=== PATIENT | female | born 1950 | race Caucasian/White ===

== ENCOUNTER 2022-01-22 18:22 | Inpatient (IN) ==
[2022-01-22 18:59] LABS: Basophils # 0.1 10*3/uL (0.0-0.2); Basophils % 0.6 % (0.0-0.8); Eosinophils # 0.4 10*3/uL (0.0-0.87); Eosinophils % 4.1 % (0.00-10.9); Hematocrit 36.9 VOL% (35.7-47.0); Hemoglobin 12.1 GM/DL (12.0-16.0); Immature Granulocytes % 0.4 %; Immature Granulocytes Absolute 0.04 #; Lymphocytes # 2.2 10*3/uL (1.4-4.0); Mean Corpuscular HGB Conc 32.8 GM/DL (32-36); Mean Corpuscular Volume 90.9 FL (87-102); Mean Platelet Volume 10.6 FL (9.6-12.0); Monocytes # 0.6 10*3/uL (0.11-0.8); Monocytes % 6.7 % (1.7-12.7); Neutrophils % 65.2 % (38.7-73.9); Platelet Count 224 T/CUMM (130-400); Red Blood Count 4.06 MC/CUMM (3.8-5.5); Red Cell Distribution Width 13.3 % (9.3-17.3); White Blood Count 9.4 T/CUMM (4-12)
[2022-01-22 19:06] LABS: Arterial Base Excess iSTAT 1 MMOL/L (-2.5-2.5); Arterial Bicarbonate iSTAT 24.8 MMOL/L (20-26); Arterial O2 Saturation iSTAT 95 % (95-100); Arterial PCO2 iSTAT 36 MM HG (35-48); Arterial PO2 iSTAT 74 MM HG (80-95); Arterial Total CO2 iSTAT 26 MMO/L (23-27); Arterial pH iSTAT 7.446 (7.35-7.45)
[2022-01-22 19:09] LABS: INR 0.9; PT Patient Result 10.5 SECS (10.1-12.1)
[2022-01-22 19:22] LABS: Albumin 3.9 G/DL (3.4-5.0); Bilirubin,Total 0.5 MG/DL (0.20-1.00); Calcium 9.9 MG/DL (8.5-10.1); Osmolality,Calculated 287.3 MOS/KG (273-304); Potassium 3.7 MMOL/L (3.5-5.1)
[2022-01-22] MEDS ORDERED: ENOXAPARIN 30 MG/0.3 ML SYRINGE SUBCUT STA (20:30)
[2022-01-22] MEDS ORDERED: ENOXAPARIN 100 MG/ML SYRINGE SUBCUT ONE (20:31)
[2022-01-22] MEDS ORDERED: GLUCAGON 1 MG VIAL IM PRN (21:58)
[2022-01-22] MEDS ORDERED: SIMETHICONE CHEW 125 MG TABLET PO PRN (22:03)
[2022-01-22] MEDS ORDERED: ONDANSETRON 4 MG/2 ML VIAL IV PRN (22:03)
[2022-01-22] MEDS ORDERED: ALBUTEROL 2.5 MG/3 ML NEB RESP TX PRN (22:03)
[2022-01-22] MEDS ORDERED: ACETAMINOPHEN 325 MG TABLET PO PRN (22:03)
[2022-01-22] MEDS ORDERED: hydrALAZINE 20 MG/1 ML VIAL IV PRN (22:03)
[2022-01-22] MEDS ORDERED: MAGNESIUM SULF RIDER 2 GM/50 ML PREMIX IV STA (22:09)
[2022-01-22] MEDS ORDERED: DEXTROSE 10% 250 ML BAG IV PRN (22:18)
[2022-01-22] MEDS: ASPIRIN EC 81 MG TABLET PO SCH (23:30)
[2022-01-22] MEDS: GABAPENTIN 100 MG CAPSULE PO SCH (23:30)
[2022-01-22] MEDS: LACTATED RINGERS 1,000 ML IV SCH (23:30)
[2022-01-23] MEDS: LEVOTHYROXINE 75 MCG TABLET PO SCH (05:11)
[2022-01-23 05:20] LABS: Basophils # 0.1 10*3/uL (0.0-0.2); Basophils % 0.7 % (0.0-0.8); Eosinophils # 0.3 10*3/uL (0.0-0.87); Eosinophils % 4.2 % (0.00-10.9); Hematocrit 31.6 VOL% (35.7-47.0); Hemoglobin 10.5 GM/DL (12.0-16.0); Immature Granulocytes % 0.4 %; Immature Granulocytes Absolute 0.03 #; Lymphocytes # 1.9 10*3/uL (1.4-4.0); Lymphocytes % 27.3 % (21.3-54.2); Mean Corpuscular HGB Conc 33.2 GM/DL (32-36); Mean Corpuscular Volume 90.3 FL (87-102); Mean Platelet Volume 10.5 FL (9.6-12.0); Monocytes # 0.5 10*3/uL (0.11-0.8); Monocytes % 6.8 % (1.7-12.7); Neutrophils % 60.6 % (38.7-73.9); Platelet Count 178 T/CUMM (130-400); Red Cell Distribution Width 13.4 % (9.3-17.3); White Blood Count 6.9 T/CUMM (4-12)
[2022-01-23 05:30] LABS: INR 0.9; PT Patient Result 10.3 SECS (10.1-12.1)
[2022-01-23 05:51] LABS: Calcium 9.7 MG/DL (8.5-10.1); Osmolality,Calculated 280.5 MOS/KG (273-304); Potassium 3.6 MMOL/L (3.5-5.1); Risk Ratio 3.98; Thyroid Stimulating Hormone 3.1 uIU/ml (0.358-3.74); VLDL Cholesterol 30.6 MG/DL
[2022-01-23 05:57] LABS: Platelet Estimate Normal
[2022-01-23] MEDS: INSULIN REGULAR 100 UNIT/ML SUBCUT SCH ×4 (07:10→20:53)
[2022-01-23] MEDS ORDERED: ENOXAPARIN 120 MG/0.8 ML SYRINGE SUBCUT SCH (08:00)
[2022-01-23] MEDS ORDERED: VALSARTAN 320 MG PO SCH (09:00)
[2022-01-23] MEDS ORDERED: CHLORTHALIDONE 15 MG PO SCH (09:00)
[2022-01-23] MEDS ORDERED: HEPARIN/NACL 0.9% 2 UNITS/ML 2,000 UNIT/1,000 ML BAG IV ONE (09:44)
[2022-01-23] MEDS: LACTATED RINGERS 1,000 ML IV SCH (10:38)
[2022-01-23] MEDS ORDERED: HYDROmorphone 1 MG/1 ML SYRINGE ONE ×2 (11:13→11:35)
[2022-01-23] MEDS ORDERED: MIDAZOLAM 2 MG/2 ML VIAL ONE ×2 (11:13→12:19)
[2022-01-23] MEDS ORDERED: diphenhydrAMINE 50 MG/1 ML VIAL ONE (11:25)
[2022-01-23] MEDS ORDERED: PHENYLEPHRINE 50 MG/5 ML VIAL ONE (13:28)
[2022-01-23] MEDS ORDERED: POTASSIUM CHLORIDE RIDER 10 MEQ/100 ML PREMIX IV PRN (14:21)
[2022-01-23] MEDS ORDERED: MAGNESIUM SULF RIDER 2 GM/50 ML PREMIX IV PRN (14:21)
[2022-01-23] MEDS ORDERED: ONDANSETRON 4 MG/2 ML VIAL ONE (14:21)
[2022-01-23 14:25] LABS: Hemoglobin 10.3 GM/DL (12.0-16.0)
[2022-01-23] MEDS ORDERED: SODIUM CHLORIDE 0.9% 1,000 ML IV PRN (14:33)
[2022-01-23] MEDS ORDERED: PHENYLEPHRINE DRIP 40 MG/250 ML PREMIX IV ONE (14:37)
[2022-01-23] MEDS: PHENYLEPHRINE DRIP 40 MG/250 ML PREMIX IV PRN ×2 (14:42→20:39)
[2022-01-23] MEDS: VALSARTAN 160 MG TABLET PO SCH (16:06)
[2022-01-23] MEDS: DOCUSATE SODIUM 100 MG CAPSULE PO SCH ×2 (16:06→20:54)
[2022-01-23] MEDS: ESCITALOPRAM 10 MG TABLET PO SCH (16:07)
[2022-01-23] MEDS: PANTOPRAZOLE 40 MG TABLET PO SCH (16:07)
[2022-01-23] MEDS: POTASSIUM CHLORIDE 20 MEQ TABLET PO SCH (16:07)
[2022-01-23] MEDS: CHLORTHALIDONE 25 MG TABLET PO SCH (16:07)
[2022-01-23] MEDS: CETIRIZINE 10 MG TABLET PO SCH (16:08)
[2022-01-23] MEDS: ZINC GLUCONATE 50 MG TABLET PO SCH (16:08)
[2022-01-23] MEDS: CHOLECALCIFEROL 1,000 UNIT TABLET PO SCH (16:08)
[2022-01-23] MEDS ORDERED: RIVAROXABAN 20 MG TABLET PO SCH (17:00)
[2022-01-23 18:19] LABS: Basophils # 0.1 10*3/uL (0.0-0.2); Basophils % 0.4 % (0.0-0.8); Eosinophils # 0.1 10*3/uL (0.0-0.87); Eosinophils % 0.5 % (0.00-10.9); Hematocrit 34.6 VOL% (35.7-47.0); Hemoglobin 10.4 GM/DL (12.0-16.0); Immature Granulocytes % 0.7 %; Lymphocytes # 2.1 10*3/uL (1.4-4.0); Lymphocytes % 14.5 % (21.3-54.2); Mean Corpuscular HGB Conc 30.1 GM/DL (32-36); Mean Platelet Volume 10.7 FL (9.6-12.0); Monocytes # 0.9 10*3/uL (0.11-0.8); Monocytes % 6.2 % (1.7-12.7); Neutrophils % 77.7 % (38.7-73.9); Platelet Count 284 T/CUMM (130-400); Red Blood Count 3.53 MC/CUMM (3.8-5.5); Red Cell Distribution Width 13.5 % (9.3-17.3); White Blood Count 14.8 T/CUMM (4-12)
[2022-01-23 18:44] LABS: Calcium 8.5 MG/DL (8.5-10.1); Osmolality,Calculated 289.4 MOS/KG (273-304); Potassium 4.5 MMOL/L (3.5-5.1)
[2022-01-23] MEDS: GABAPENTIN 100 MG CAPSULE PO SCH (20:53)
[2022-01-23] MEDS: ROSUVASTATIN 10 MG TABLET PO SCH (20:53)
[2022-01-23] MEDS: ASPIRIN EC 81 MG TABLET PO SCH (20:54)
[2022-01-23] MEDS ORDERED: ROSUVASTATIN 10 MG TABLET PO SCH (21:00)
[2022-01-23 22:39] LABS: Hematocrit 35.2 VOL% (35.7-47.0); Hemoglobin 11.2 GM/DL (12.0-16.0)
[2022-01-24] MEDS: PHENYLEPHRINE DRIP 40 MG/250 ML PREMIX IV PRN ×4 (02:40→22:55)
[2022-01-24 02:48] LABS: Basophils % 0.2 % (0.0-0.8); Eosinophils % 0.1 % (0.00-10.9); Hematocrit 31.3 VOL% (35.7-47.0); Hemoglobin 9.9 GM/DL (12.0-16.0); Immature Granulocytes % 0.9 %; Immature Granulocytes Absolute 0.12 #; Lymphocytes # 1.9 10*3/uL (1.4-4.0); Lymphocytes % 13.6 % (21.3-54.2); Mean Corpuscular HGB Conc 31.6 GM/DL (32-36); Mean Corpuscular Volume 92.9 FL (87-102); Mean Platelet Volume 10.2 FL (9.6-12.0); Monocytes # 0.9 10*3/uL (0.11-0.8); Monocytes % 6.5 % (1.7-12.7); Neutrophils % 78.7 % (38.7-73.9); Platelet Count 286 T/CUMM (130-400); Red Blood Count 3.37 MC/CUMM (3.8-5.5); Red Cell Distribution Width 13.8 % (9.3-17.3); White Blood Count 13.6 T/CUMM (4-12)
[2022-01-24 02:57] LABS: PT Patient Result 11.4 SECS (10.1-12.1)
[2022-01-24 03:07] LABS: Calcium 8.9 MG/DL (8.5-10.1); Osmolality,Calculated 281.7 MOS/KG (273-304); Potassium 4.5 MMOL/L (3.5-5.1)
[2022-01-24] MEDS: LEVOTHYROXINE 75 MCG TABLET PO SCH (06:52)
[2022-01-24] MEDS: INSULIN REGULAR 100 UNIT/ML SUBCUT SCH ×4 (08:22→21:16)
[2022-01-24 09:05] LABS: Hemoglobin 9.5 GM/DL (12.0-16.0)
[2022-01-24] MEDS: RIVAROXABAN 15 MG TABLET PO SCH ×2 (09:21→17:19)
[2022-01-24] MEDS: POTASSIUM CHLORIDE 20 MEQ TABLET PO SCH (09:22)
[2022-01-24] MEDS: CHOLECALCIFEROL 1,000 UNIT TABLET PO SCH (09:22)
[2022-01-24] MEDS: CETIRIZINE 10 MG TABLET PO SCH (09:22)
[2022-01-24] MEDS: ESCITALOPRAM 10 MG TABLET PO SCH (09:22)
[2022-01-24] MEDS: ZINC GLUCONATE 50 MG TABLET PO SCH (09:22)
[2022-01-24] MEDS: PANTOPRAZOLE 40 MG TABLET PO SCH (09:22)
[2022-01-24] MEDS: CHLORTHALIDONE 25 MG TABLET PO SCH (09:23)
[2022-01-24] MEDS: DOCUSATE SODIUM 100 MG CAPSULE PO SCH ×2 (09:28→21:17)
[2022-01-24] MEDS: VALSARTAN 160 MG TABLET PO SCH (09:28)
[2022-01-24] MEDS ORDERED: DIAZEPAM 5 MG TABLET PO ONE (11:41)
[2022-01-24] MEDS ORDERED: SODIUM CHLORIDE 0.45% 1,000 ML IV SCH (12:00)
[2022-01-24] MEDS: SODIUM CHLORIDE 0.45% 1,000 ML IV SCH (14:26)
[2022-01-24 16:00] LABS: Hematocrit 27.4 VOL% (35.7-47.0); Hemoglobin 8.9 GM/DL (12.0-16.0)
[2022-01-24] MEDS: GABAPENTIN 100 MG CAPSULE PO SCH (21:17)
[2022-01-24] MEDS: ASPIRIN EC 81 MG TABLET PO SCH (21:17)
[2022-01-24] MEDS: ROSUVASTATIN 10 MG TABLET PO SCH (21:17)
[2022-01-25] MEDS: SODIUM CHLORIDE 0.45% 1,000 ML IV SCH ×3 (00:30→17:05)
[2022-01-25 06:09] LABS: Basophils % 0.6 % (0.0-0.8); Eosinophils # 0.1 10*3/uL (0.0-0.87); Eosinophils % 1.4 % (0.00-10.9); Hematocrit 22.7 VOL% (35.7-47.0); Hemoglobin 7.5 GM/DL (12.0-16.0); Immature Granulocytes % 1.1 %; Immature Granulocytes Absolute 0.08 #; Lymphocytes # 1.5 10*3/uL (1.4-4.0); Lymphocytes % 20.6 % (21.3-54.2); Mean Corpuscular Volume 91.9 FL (87-102); Mean Platelet Volume 10.8 FL (9.6-12.0); Monocytes # 0.6 10*3/uL (0.11-0.8); Monocytes % 8.7 % (1.7-12.7); Neutrophils % 67.6 % (38.7-73.9); Platelet Count 144 T/CUMM (130-400); Red Blood Count 2.47 MC/CUMM (3.8-5.5); Red Cell Distribution Width 13.9 % (9.3-17.3); White Blood Count 7.2 T/CUMM (4-12)
[2022-01-25 06:22] LABS: INR 1.3
[2022-01-25 06:25] LABS: Calcium 8.1 MG/DL (8.5-10.1); Osmolality,Calculated 280.8 MOS/KG (273-304); Potassium 3.7 MMOL/L (3.5-5.1)
[2022-01-25] MEDS: LEVOTHYROXINE 75 MCG TABLET PO SCH (06:44)
[2022-01-25] MEDS: INSULIN REGULAR 100 UNIT/ML SUBCUT SCH ×3 (07:27→20:28)
[2022-01-25] MEDS: RIVAROXABAN 15 MG TABLET PO SCH ×2 (08:50→17:12)
[2022-01-25] MEDS: POTASSIUM CHLORIDE 20 MEQ TABLET PO SCH (08:50)
[2022-01-25] MEDS: DOCUSATE SODIUM 100 MG CAPSULE PO SCH ×2 (08:50→20:28)
[2022-01-25] MEDS: ESCITALOPRAM 10 MG TABLET PO SCH (08:50)
[2022-01-25] MEDS: CETIRIZINE 10 MG TABLET PO SCH (08:50)
[2022-01-25] MEDS: CHOLECALCIFEROL 1,000 UNIT TABLET PO SCH (08:50)
[2022-01-25] MEDS: ZINC GLUCONATE 50 MG TABLET PO SCH (08:51)
[2022-01-25] MEDS: CHLORTHALIDONE 25 MG TABLET PO SCH (08:51)
[2022-01-25] MEDS: PANTOPRAZOLE 40 MG TABLET PO SCH (08:51)
[2022-01-25] MEDS: VALSARTAN 160 MG TABLET PO SCH (08:52)
[2022-01-25] MEDS ORDERED: SODIUM CHLORIDE 0.9% 1,000 ML IV PRN (11:16)
[2022-01-25] MEDS ORDERED: POLYETHYLENE GLYCOL POWDER 17 GM PACK PO PRN (11:16)
[2022-01-25 19:33] LABS: Hematocrit 28.3 VOL% (35.7-47.0); Hemoglobin 9.2 GM/DL (12.0-16.0)
[2022-01-25] MEDS: GABAPENTIN 100 MG CAPSULE PO SCH (20:28)
[2022-01-25] MEDS: ROSUVASTATIN 10 MG TABLET PO SCH (20:28)
[2022-01-25] MEDS: ASPIRIN EC 81 MG TABLET PO SCH (20:28)
[2022-01-26] MEDS: LEVOTHYROXINE 75 MCG TABLET PO SCH (05:38)
[2022-01-26 06:01] LABS: Basophils % 0.7 % (0.0-0.8); Eosinophils # 0.2 10*3/uL (0.0-0.87); Eosinophils % 2.9 % (0.00-10.9); Hematocrit 25.8 VOL% (35.7-47.0); Hemoglobin 8.1 GM/DL (12.0-16.0); Immature Granulocytes % 1.1 %; Immature Granulocytes Absolute 0.06 #; Mean Corpuscular HGB Conc 31.4 GM/DL (32-36); Mean Corpuscular Volume 93.1 FL (87-102); Mean Platelet Volume 10.9 FL (9.6-12.0); Monocytes # 0.4 10*3/uL (0.11-0.8); Monocytes % 7.1 % (1.7-12.7); Neutrophils % 69.2 % (38.7-73.9); Platelet Count 111 T/CUMM (130-400); Red Blood Count 2.77 MC/CUMM (3.8-5.5); Red Cell Distribution Width 14.2 % (9.3-17.3); White Blood Count 5.5 T/CUMM (4-12)
[2022-01-26 06:13] LABS: Calcium 8.5 MG/DL (8.5-10.1); Osmolality,Calculated 281.4 MOS/KG (273-304); Potassium 3.6 MMOL/L (3.5-5.1)
[2022-01-26] MEDS: INSULIN REGULAR 100 UNIT/ML SUBCUT SCH ×4 (08:35→21:30)
[2022-01-26] MEDS: ZINC GLUCONATE 50 MG TABLET PO SCH (10:56)
[2022-01-26] MEDS: POTASSIUM CHLORIDE 20 MEQ TABLET PO SCH (10:56)
[2022-01-26] MEDS: ESCITALOPRAM 10 MG TABLET PO SCH (10:57)
[2022-01-26] MEDS: PANTOPRAZOLE 40 MG TABLET PO SCH (10:57)
[2022-01-26] MEDS: CETIRIZINE 10 MG TABLET PO SCH (10:57)
[2022-01-26] MEDS: DOCUSATE SODIUM 100 MG CAPSULE PO SCH ×2 (10:57→20:23)
[2022-01-26] MEDS: CHOLECALCIFEROL 1,000 UNIT TABLET PO SCH (10:57)
[2022-01-26] MEDS: RIVAROXABAN 15 MG TABLET PO SCH ×2 (10:58→18:00)
[2022-01-26] MEDS ORDERED: OXYMETAZOLINE 0.05% NASAL SPRAY 15 ML BOTTLE BOTH NARES PRN (15:22)
[2022-01-26] MEDS: VALSARTAN 160 MG TABLET PO SCH (15:33)
[2022-01-26] MEDS: CHLORTHALIDONE 25 MG TABLET PO SCH (15:33)
[2022-01-26] MEDS: POLYETHYLENE GLYCOL POWDER 17 GM PACK PO SCH (20:23)
[2022-01-26] MEDS: ASPIRIN EC 81 MG TABLET PO SCH (20:23)
[2022-01-26] MEDS: ROSUVASTATIN 10 MG TABLET PO SCH (20:23)
[2022-01-27] MEDS: LEVOTHYROXINE 75 MCG TABLET PO SCH (05:49)
[2022-01-27 07:23] LABS: Basophils % 0.6 % (0.0-0.8); Eosinophils # 0.2 10*3/uL (0.0-0.87); Eosinophils % 4.5 % (0.00-10.9); Hematocrit 25.6 VOL% (35.7-47.0); Hemoglobin 8.4 GM/DL (12.0-16.0); Immature Granulocytes % 0.8 %; Immature Granulocytes Absolute 0.04 #; Lymphocytes # 0.9 10*3/uL (1.4-4.0); Lymphocytes % 17.4 % (21.3-54.2); Mean Corpuscular HGB Conc 32.8 GM/DL (32-36); Mean Corpuscular Volume 91.8 FL (87-102); Mean Platelet Volume 10.4 FL (9.6-12.0); Monocytes # 0.4 10*3/uL (0.11-0.8); Monocytes % 7.5 % (1.7-12.7); Neutrophils % 69.2 % (38.7-73.9); Platelet Count 150 T/CUMM (130-400); Red Blood Count 2.79 MC/CUMM (3.8-5.5); Red Cell Distribution Width 13.8 % (9.3-17.3); White Blood Count 5.1 T/CUMM (4-12)
[2022-01-27 07:31] LABS: INR 1.1; PT Patient Result 12.4 SECS (10.1-12.1); Partial Thromboplastin Time 30.8 SECS (23.7-32.9)
[2022-01-27 07:47] LABS: Calcium 8.8 MG/DL (8.5-10.1); Osmolality,Calculated 281.3 MOS/KG (273-304); Potassium 3.5 MMOL/L (3.5-5.1)
[2022-01-27 07:52] LABS: % Iron Saturation 10.4 % (18-50); Ferritin 133.4 ng/mL (8-252)
[2022-01-27] MEDS: INSULIN REGULAR 100 UNIT/ML SUBCUT SCH ×4 (08:19→21:36)
[2022-01-27 08:31] LABS: Sedimentation Rate-Westergren 88 MM/HR (0-30)
[2022-01-27] MEDS ORDERED: LACTULOSE 20 GM/30 ML UDCUP PO ONE (08:33)
[2022-01-27] MEDS ORDERED: CYANOCOBALAMIN 1000 MCG/1 ML VIAL IM SCH (09:00)
[2022-01-27 09:52] LABS: Hemoglobin A1 (Alkaline) 97.3 % (96.5-98.5); Hemoglobin A2 (Alkaline) 2.7 % (1.5-3.5)
[2022-01-27] MEDS: POLYETHYLENE GLYCOL POWDER 17 GM PACK PO SCH ×2 (10:07→21:34)
[2022-01-27] MEDS: PANTOPRAZOLE 40 MG TABLET PO SCH (10:08)
[2022-01-27] MEDS: DOCUSATE SODIUM 100 MG CAPSULE PO SCH ×2 (10:09→21:33)
[2022-01-27] MEDS: RIVAROXABAN 15 MG TABLET PO SCH ×2 (10:09→17:35)
[2022-01-27] MEDS: ZINC GLUCONATE 50 MG TABLET PO SCH (10:09)
[2022-01-27] MEDS: ESCITALOPRAM 10 MG TABLET PO SCH (10:09)
[2022-01-27] MEDS: CHLORTHALIDONE 25 MG TABLET PO SCH (10:10)
[2022-01-27] MEDS: CHOLECALCIFEROL 1,000 UNIT TABLET PO SCH (10:10)
[2022-01-27] MEDS: POTASSIUM CHLORIDE 20 MEQ TABLET PO SCH (10:10)
[2022-01-27] MEDS: CETIRIZINE 10 MG TABLET PO SCH (10:11)
[2022-01-27 10:20] LABS: Folate 12.79 NG/ML (5.38-24.0); Vitamin B12 778 PG/ML (211-911)
[2022-01-27] MEDS: FERRIC GLUCONATE COMPLEX 125 MG in SODIUM CHLORIDE 0.9% 100 ML IV SCH (11:56)
[2022-01-27] MEDS: ROSUVASTATIN 10 MG TABLET PO SCH (21:33)
[2022-01-27] MEDS: ASPIRIN EC 81 MG TABLET PO SCH (21:33)
[2022-01-28 05:42] LABS: Basophils % 0.5 % (0.0-0.8); Eosinophils # 0.3 10*3/uL (0.0-0.87); Hematocrit 25.6 VOL% (35.7-47.0); Hemoglobin 8.4 GM/DL (12.0-16.0); Immature Granulocytes % 0.4 %; Immature Granulocytes Absolute 0.02 #; Lymphocytes % 18.5 % (21.3-54.2); Mean Corpuscular HGB Conc 32.8 GM/DL (32-36); Mean Corpuscular Volume 91.4 FL (87-102); Monocytes # 0.5 10*3/uL (0.11-0.8); Monocytes % 9.2 % (1.7-12.7); Neutrophils % 66.4 % (38.7-73.9); Platelet Count 162 T/CUMM (130-400); Red Cell Distribution Width 13.8 % (9.3-17.3); White Blood Count 5.6 T/CUMM (4-12)
[2022-01-28 06:01] LABS: Calcium 8.9 MG/DL (8.5-10.1); Potassium 3.5 MMOL/L (3.5-5.1)
[2022-01-28] MEDS: LEVOTHYROXINE 75 MCG TABLET PO SCH (06:40)
[2022-01-28] MEDS: INSULIN REGULAR 100 UNIT/ML SUBCUT SCH ×4 (08:26→23:05)
[2022-01-28] MEDS ORDERED: MAGNESIUM SULF RIDER 4 GM/100 ML PREMIX IV ONE (08:30)
[2022-01-28] MEDS: FERRIC GLUCONATE COMPLEX 125 MG in SODIUM CHLORIDE 0.9% 100 ML IV SCH (09:06)
[2022-01-28] MEDS: POLYETHYLENE GLYCOL POWDER 17 GM PACK PO SCH ×2 (09:08→22:09)
[2022-01-28] MEDS: RIVAROXABAN 15 MG TABLET PO SCH ×2 (09:08→17:01)
[2022-01-28] MEDS: ZINC GLUCONATE 50 MG TABLET PO SCH (09:08)
[2022-01-28] MEDS: CHLORTHALIDONE 25 MG TABLET PO SCH (09:08)
[2022-01-28] MEDS: ESCITALOPRAM 10 MG TABLET PO SCH (09:09)
[2022-01-28] MEDS: POTASSIUM CHLORIDE 20 MEQ TABLET PO SCH (09:09)
[2022-01-28] MEDS: DOCUSATE SODIUM 100 MG CAPSULE PO SCH ×2 (09:09→22:09)
[2022-01-28] MEDS: CHOLECALCIFEROL 1,000 UNIT TABLET PO SCH (09:09)
[2022-01-28] MEDS: CETIRIZINE 10 MG TABLET PO SCH (09:10)
[2022-01-28] MEDS: PANTOPRAZOLE 40 MG TABLET PO SCH (09:10)
[2022-01-28 10:16] LABS: Protein C Activity Plasma 141 % (70 - 150)
[2022-01-28] MEDS ORDERED: POTASSIUM CHLORIDE 20 MEQ TABLET PO ONE (11:57)
[2022-01-28] MEDS ORDERED: FUROSEMIDE 40 MG/4 ML VIAL IV ONE (11:57)
[2022-01-28] MEDS: ASPIRIN EC 81 MG TABLET PO SCH (22:09)
[2022-01-28] MEDS: ROSUVASTATIN 10 MG TABLET PO SCH (22:09)
[2022-01-29 04:54] LABS: Basophils % 0.5 % (0.0-0.8); Eosinophils # 0.3 10*3/uL (0.0-0.87); Hematocrit 29.1 VOL% (35.7-47.0); Hemoglobin 9.6 GM/DL (12.0-16.0); Immature Granulocytes % 0.5 %; Immature Granulocytes Absolute 0.03 #; Lymphocytes # 1.3 10*3/uL (1.4-4.0); Mean Corpuscular Volume 90.7 FL (87-102); Mean Platelet Volume 10.2 FL (9.6-12.0); Monocytes # 0.6 10*3/uL (0.11-0.8); Monocytes % 9.4 % (1.7-12.7); Neutrophils % 64.6 % (38.7-73.9); Platelet Count 194 T/CUMM (130-400); Red Blood Count 3.21 MC/CUMM (3.8-5.5); Red Cell Distribution Width 13.9 % (9.3-17.3); White Blood Count 6.5 T/CUMM (4-12)
[2022-01-29 05:08] LABS: Osmolality,Calculated 276.5 MOS/KG (273-304); Potassium 3.4 MMOL/L (3.5-5.1)
[2022-01-29] MEDS: LEVOTHYROXINE 75 MCG TABLET PO SCH (06:14)
[2022-01-29] MEDS: INSULIN REGULAR 100 UNIT/ML SUBCUT SCH ×2 (08:32→14:31)
[2022-01-29] MEDS ORDERED: POTASSIUM CHLORIDE 20 MEQ TABLET PO ONE ×2 (08:36→12:00)
[2022-01-29] MEDS: RIVAROXABAN 15 MG TABLET PO SCH (09:02)
[2022-01-29] MEDS: CHOLECALCIFEROL 1,000 UNIT TABLET PO SCH (09:02)
[2022-01-29] MEDS: ESCITALOPRAM 10 MG TABLET PO SCH (09:02)
[2022-01-29] MEDS: PANTOPRAZOLE 40 MG TABLET PO SCH (09:02)
[2022-01-29] MEDS: CHLORTHALIDONE 25 MG TABLET PO SCH (09:03)
[2022-01-29] MEDS: DOCUSATE SODIUM 100 MG CAPSULE PO SCH (09:03)
[2022-01-29] MEDS: POLYETHYLENE GLYCOL POWDER 17 GM PACK PO SCH (09:04)
[2022-01-29] MEDS: POTASSIUM CHLORIDE 20 MEQ TABLET PO SCH (09:06)
[2022-01-29] MEDS: ZINC GLUCONATE 50 MG TABLET PO SCH (09:07)
[2022-01-29] MEDS: CETIRIZINE 10 MG TABLET PO SCH (09:07)
[2022-01-29] MEDS: FERRIC GLUCONATE COMPLEX 125 MG in SODIUM CHLORIDE 0.9% 100 ML IV SCH (11:09)
[2022-01-29 14:41] VITALS: BP 134/57
[2022-02-01 11:46] LABS: DRVVT Screen Ratio 1.47 ratio (<1.20); INR 1.9 (0.9-1.1)
[2022-02-01 14:01] LABS: Protein S Activity Plasma 179 % (65 - 160)
== END 2022-01-29 13:30 | disposition home health service (06) | DRG 163 ==
LOC: N.ED 18:22 → N.EDINP 21:58 → SUATTDRO 21:58 → N.CC 01-23 11:30 → N.TELEN 01-26 05:34
PROVIDERS: ADMIT Hospitalist; ATTEND Family Medicine